=== PATIENT | male | born 1990 | race Caucasian/White ===

== ENCOUNTER 2018-04-12 05:30 | Emergency (ER) | payer OTHER ==
[2018-04-12 06:38] LABS: ADD MAN DIFF? NO
[2018-04-12 06:40] LABS: BASO # 0.1 x10^3/uL (0.0-0.2); BASO % 1 % (0-3); EOS # 0.2 x10^3/uL (0.0-0.7); EOS % 2 % (0-3); HEMOGLOBIN 17.4 g/dL (13.0-17.5); LYMPH # 6.1 x10^3/uL (1.0-4.8); LYMPH % 57 % (24-48); MEAN CORPUSCULAR HEMOGLOBIN 30 pg (25-35); MEAN CORPUSCULAR HGB CONC 34 g/dL (31-37); MEAN CORPUSCULAR VOLUME 87 fL (79-100); MONO # 0.6 x10^3/uL (0.0-1.1); MONO % 6 % (0-9); NEUT # 3.7 x10^3uL (1.8-7.7); NEUT % 35 % (31-73); PLATELET COUNT 231 x10^3/uL (140-400); RED BLOOD COUNT 5.83 x10^6/uL (4.30-5.70); RED CELL DISTRIBUTION WIDTH 13.5 % (11.5-14.5); WHITE BLOOD COUNT 10.7 x10^3/uL (4.0-11.0)
[2018-04-12] MEDS: IV NORMAL SALINE 1000ML BAG 1,000 ML IV (06:44)
[2018-04-12] MEDS: FAMOTIDINE 20 MG TABLET. PO (06:44)
[2018-04-12 06:52] LABS: ANION GAP 11 (6-14); BLOOD UREA NITROGEN 21 mg/dL (8-26); BUN/CREATININE RATIO 23 (6-20); CALCIUM 8.9 mg/dL (8.5-10.1); CARBON DIOXIDE 28 mmol/L (21-32); CHLORIDE 104 mmol/L (98-107); CREATININE 0.9 mg/dL (0.7-1.3); GLUCOSE 107 mg/dL (70-99); POTASSIUM 4.1 mmol/L (3.5-5.1); SODIUM 143 mmol/L (136-145)
[2018-04-12 06:57] LABS: ALBUMIN 3.9 g/dL (3.4-5.0); ALBUMIN/GLOBULIN RATIO 1.1 (1.0-1.7); ALK PHOS 42 U/L (46-116); ALT (SGPT) 62 U/L (16-63); AST (SGOT) 27 U/L (15-37); LIPASE 123 U/L (73-393); TOTAL BILIRUBIN 0.4 mg/dL (0.2-1.0); TOTAL PROTEIN 7.6 g/dL (6.4-8.2)
[2018-04-12 06:59] LABS: LACTIC ACID 1.3 mmol/L (0.4-2.0)
[2018-04-12 07:03] LABS: NT-PRO BNP 8 pg/mL (0-124)
[2018-04-12 07:09] LABS: TROPONINI < 0.017 ng/mL (0.000-0.055)
[2018-04-12 07:18] LABS: BILIRUBIN,URINE NEGATIVE (NEG); CLARITY,URINE CLEAR; COLOR,URINE YELLOW; GLUCOSE,URINE NEGATIVE (NEG); NITRITE,URINE NEGATIVE (NEG); PH,URINE 5.5; PROTEIN,URINE NEGATIVE (NEG-TRACE); UROBILINOGEN,URINE 0.2 mg/dL (0.2 mg/dL)
[2018-04-12 07:23] LABS: RBC,URINE OCC /HPF (0-2); SQUAMOUS EPITHELIAL CELL,UR OCC /LPF
[2018-04-12 07:24] LABS: BACTERIA,URINE FEW /HPF (0-FEW)
[2018-04-12 07:29] LABS: % ATYL 3 % (0-0); % BANDS 1 % (0-9); % EOS 2 % (0-5); % LYMPHS 52 % (24-48); % MONOS 5 % (0-10); % SEGS 37 % (35-66); PLT ESTIMATE ADEQUATE (ADEQUATE)
[2018-04-12] MEDS ORDERED: fentaNYL PF VIAL 100 MCG/2 ML VIAL IV (07:45)
[2018-04-12] MEDS ORDERED: ONDANSETRON PF 4 MG/2 ML VIAL. IV (07:45)
[2018-04-12 07:59] LABS: ETHANOL < 10 mg/dL (0-10)
== END 2018-04-12 09:12 | disposition home or self-care (01) ==
LOC: ER 05:30
DX: R07.89 Other chest pain (principal); R55 Syncope and collapse; R41.0 Disorientation, unspecified
CPT/HCPCS: 36415; 71046; 80053; 81001; 83605; 83690; 83735; 83880; 84484; 85007; 85025; 93005; 96360; 99285-25; G0480; J7030